=== PATIENT | male | born 1950 | race Caucasian/White ===

== ENCOUNTER 2025-08-17 19:31 | Emergency (ER) | payer MEDICARE ==
[2025-08-17] MEDS ORDERED: Ibuprofen 600 MG TAB ONE (20:22)
[2025-08-17] MEDS ORDERED: Amoxicillin/Potassium Clav 875 MG TAB ONE (20:23)
[2025-08-17] MEDS ORDERED: Boostrix 0.5 ML (Tdap) VIAL (>/=7 yrs of age) ONE (20:23)
== END 2025-08-17 21:00 | disposition home or self-care (01) ==
LOC: MADERS 19:31
DX: S81.032A Puncture wound without foreign body, left knee, initial encounter (principal); I10 Essential (primary) hypertension; F17.210 Nicotine dependence, cigarettes, uncomplicated; Z23 Encounter for immunization; Z79.899 Other long term (current) drug therapy; W22.8XXA Striking against or struck by other objects, initial encounter
CPT/HCPCS: 90471; 90715